=== PATIENT | male | born 1990 | race African-American/Black ===

== ENCOUNTER 2020-11-24 12:20 | Emergency (ER) | payer OTHER, SELFPAY ==
[2020-11-24 11:46] VITALS: BMI 28.8
[2020-11-24 12:21] VITALS: BP 146/76; PULSE 87; RESP 16; TEMP 36.2; O2SAT 99; BMI 27.1
--- NOTE | 2020-11-24 12:42 | ED.VISSUMM ---
- ER Visit Summary Date of Service: 11/24/20 Chief Complaint: Puncture wound left index finger History of Present Illness: The patient is a 30 M presents with a puncture wound to his left index finger that occurred yesterday. Patient states he was using a square transfer driver bit and it slipped. Patient states he punctured his left index finger on the volar aspect. Patient describes the pain as sharp, burning, and throbbing. Patient states that pain is worse with palpation and with movement. Patient states nothing seems to help with the pain. Patient is to some slight decrease sensation to the distal phalanx of his left index finger. Patient is unsure of his last tetanus. Physical Examination: Vital signs are stable. Patient is afebrile. Patient is in no acute distress. Musculoskeletal exam reveals a puncture wound on the volar aspect of the middle phalanx of the left index finger. There is no bleeding noted. There is some edema. There is tenderness over the middle phalanx. There is no obvious deformity noted. There is no foreign body noted. Sensation was slightly decreased to light touch in the tip of the left index finger. Sensation was otherwise intact to light touch in all digits. Capillary refill was less than 2 seconds in all digits. Strength is 5/5 in flexion and extension of the MP, PIP, and DIP joints. Test Results: X-rays of the left index finger were obtained. There are 3 views. On my interpretation, there is no acute fracture. There is no foreign body. There is no evidence of osteomyelitis. Radiologist also interpreted the x-ray and agrees. Emergency Department Course and Treatment: Patient was given a dose of Keflex and [place] here. Patient was given a tetanus booster. Patient was given a prescription for Keflex. Patient was instructed to keep the wound clean and dry. Patient was instructed to change the dressing twice daily. Patient was instructed to follow-up with his primary care physician or [facility] in 5 to 7 days. Patient was instructed to take Tylenol or ibuprofen as needed for pain. Patient understood and was agreeable with the plan. All questions were answered. Disposition: Discharge home Impression: Puncture wound left index finger This note was generated with [employer] software. It may contain incorrect words, spelling, and punctuation that were not noted in review of the chart prior to signing ED Disposition - Plan for ED Patient: Disposition: Home or Assisted Living Diagnosis: Puncture wound of left index finger Instructions: ED Puncture Wound (General) Prescriptions: Cephalexin [Keflex] 500 mg PO Q6 #40 cap Prescription Printed Referrals: NOT,DEFINED [NON-STAFF] - [facility] [GROUP OF PHYSICIANS] - 5-7 Days
--- NOTE | 2020-11-24 12:50 | RAD_ITS ---
STUDY: X-RAY - LEFT HAND, ATTENTION INDEX FINGER REASON FOR EXAM: Male, 30 years old. Drill bit went into patient''s left 2nd digit yesterday TECHNIQUE: 3 view(s) of the finger were obtained. COMPARISON: None. FINDINGS: Normal metacarpal head. Normal metacarpophalangeal joint. Normal proximal phalanx. Normal middle phalanx. Normal distal phalanx. Normal proximal interphalangeal joint. Normal distal interphalangeal joint. RAD/Finger(s) Min 2 Views IMPRESSION: Normal x-ray examination of the finger. Electronically Signed: Barry Rivas MD at 13:17 EST , Service support ,
[2020-11-24] MEDS: Cephalexin 250 MG Capsule 500 MG PO (13:03)
[2020-11-24] MEDS: HYDROcodone Bitartrate/Apap 5/325 Tablet PO (13:04)
[2020-11-24] MEDS: Diphth,Pertuss(Acell),Tet Vac 0.5 ML Vial IM (13:05)
[2020-11-24 13:09] VITALS: BP 129/96; PULSE 81; RESP 12; TEMP 37.1; O2SAT 100
== END 2020-11-24 13:44 | disposition home or self-care (01) ==
PROVIDERS: Emergency Provider Emergency Medicine
DX: S61.231A Puncture wound without foreign body of left index finger without damage to nail, initial encounter (principal); F17.200 Nicotine dependence, unspecified, uncomplicated; W27.8XXA Contact with other nonpowered hand tool, initial encounter
CPT/HCPCS: 73140; 90715; 96372; 99283